=== PATIENT | female | born 1985 | race African-American/Black ===

== ENCOUNTER 2020-12-10 08:38 | Outpatient (CLI) | payer OTHER ==
[2020-12-11 01:29] LABS: SARS-CoV-2 PCR by NAA Not Detected (NotDetected)
== END 2020-12-10 08:39 | disposition home or self-care (01) ==
LOC: CSHLAB 08:38
PROVIDERS: ATTEND Family Medicine
DX: Z20.822 Contact with and (suspected) exposure to COVID-19 (principal)
CPT/HCPCS: U0003; U0005

== ENCOUNTER 2020-12-13 11:10 | Inpatient (IN) | payer OTHER ==
[2020-12-15] MEDS ORDERED: Misoprostol 200 MCG TAB PR PRN (23:35)
[2020-12-15] MEDS ORDERED: Lidocaine 1% (PF) 30 ML VIAL SC PRN (23:35)
[2020-12-15] MEDS ORDERED: Ondansetron PF 4 MG/2 ML Vial IVP PRN (23:35)
[2020-12-15] MEDS ORDERED: NS w/ Oxytocin 30 units 500 ML IV SCH ×2 (23:35→23:45)
[2020-12-15] MEDS ORDERED: HYDROcodone/Acetaminophen 5/325 mg Tablet PO PRN (23:35)
[2020-12-15] MEDS ORDERED: Diphenoxylate HCl/Atropine Tablet PO PRN (23:35)
[2020-12-15] MEDS ORDERED: Carboprost 250 MCG/ML AMP IM PRN (23:35)
[2020-12-15] MEDS ORDERED: Acetaminophen 500 MG TAB PO PRN (23:35)
[2020-12-15] MEDS ORDERED: Ibuprofen 800 MG TAB PO PRN (23:35)
[2020-12-15] MEDS ORDERED: Penicillin G Potassium 5 MILL.UNITS in Sodium Chloride 0.9% 100 ML IVPB SCH (23:35)
[2020-12-15] MEDS ORDERED: Butorphanol Tartrate 1 MG/ML VIAL SLOW IVP PRN (23:35)
[2020-12-15] MEDS ORDERED: Promethazine HCl 25 MG/ML VIAL IM PRN (23:35)
[2020-12-15 23:43] VITALS: BMI 45.6
[2020-12-15] MEDS ORDERED: NS w/ Oxytocin 30 units 500 ML IVPB SCH (23:45)
[2020-12-15] MEDS: hydrALAZINE 20 MG/ML VIAL SLOW IVP PRN (23:50)
[2020-12-16] MEDS: hydrALAZINE 20 MG/ML VIAL SLOW IVP PRN (00:06)
[2020-12-16] MEDS ORDERED: Penicillin G 2.5 MILL.units 2.5 MILL.UNITS in Premix Bag 1 BAG IVPB SCH (00:15)
[2020-12-16] MEDS ORDERED: Magnesium Sulfate 20 gm/500 ml 20 GM/500 ML BAG ONE (00:26)
[2020-12-16] MEDS ORDERED: ceFAZolin 2 GM/Dextrose 50 ML IVPB ONE (00:26)
[2020-12-16] MEDS ORDERED: hydrALAZINE 20 MG/ML VIAL ONE (00:27)
[2020-12-16] MEDS ORDERED: Labetalol HCl 100 MG/20 ML VIAL ONE (00:47)
[2020-12-16 01:11] LABS: Hemoglobin 11.6 g/dL (12.0-15.5); Mean Corpuscular HGB CONC 32.9 g/dL (32.0-36.0); Mean Corpuscular Hemoglobin 27.2 pg (27.0-33.0); Mean Corpuscular Volume 82.7 fl (81.6-98.3); Mean Platelet Volume 9.9 fl (7.4-10.4); Platelet Count 266 10x3/uL (150-450); RBC Distribution Width 14.6 % (11.5-14.5); Red Blood Cell (RBC) Count 4.27 10x6/uL (3.90-5.03); White Blood Cell (WBC) Count 8.9 10x3/uL (3.5-10.5)
[2020-12-16] MEDS ORDERED: Labetalol HCl 100 MG/20 ML VIAL SLOW IVP SCH ×2 (01:30)
[2020-12-16] MEDS ORDERED: Magnesium Sulfate 20 gm/500 ml 4 GM/100 ML BAG IVPB SCH (01:30)
[2020-12-16] MEDS ORDERED: Labetalol HCl 100 MG TAB PO SCH (01:30)
[2020-12-16] MEDS ORDERED: Magnesium Sulfate 20 gm/500 ml 20 GM/500 ML BAG IVPB SCH (01:30)
[2020-12-16] MEDS: Misoprostol 100 MCG TAB PO SCH ×2 (01:31→21:03)
[2020-12-16 01:36] LABS: Hep B Surf Ag Non-Reactive S/CO (NonReactive); Syphilis Antibody Nonreactive (Nonreactive); Syphilis Antibody Index 0.04 S/CO (<1.00 Non-Reactive)
[2020-12-16 01:48] LABS: HBSAg Index 0.12 S/CO (0-0.99)
[2020-12-16] MEDS: ceFAZolin 2 GM/Dextrose 50 ML 2 GM in Premix Bag 1 BAG IVPB SCH (06:19)
[2020-12-16] MEDS ORDERED: Fentanyl 2 mcg/Bup 0.1% Cadd 100 ML ONE (08:02)
[2020-12-16] MEDS ORDERED: ePHEDrine Sulfate 50 MG/10 ML VIAL ONE (08:08)
[2020-12-16] MEDS ORDERED: Bupivacaine 0.25% HCL 30 ML VIAL ONE (08:08)
[2020-12-16] MEDS ORDERED: Acetaminophen 325 MG TAB PO PRN (08:30)
[2020-12-16] MEDS ORDERED: Hydrocerin (Eucerin) Cream 120 gm Jar TOP PRN (08:30)
[2020-12-16] MEDS ORDERED: Lactated Ringer's 500 ML IV PRN (08:30)
[2020-12-16] MEDS ORDERED: Communication Order-Pharmacy FS SCH (08:30)
[2020-12-16] MEDS ORDERED: diphenhydrAMINE 50 MG/ML VIAL IVP PRN (08:30)
[2020-12-16] MEDS ORDERED: Fentanyl 2 mcg/Bupivacaine 0.1% Cassette 100 ML EPIDURAL SCH (08:30)
[2020-12-16] MEDS ORDERED: ePHEDrine Sulfate 50 MG/10 ML VIAL SLOW IVP PRN (08:30)
[2020-12-16] MEDS ORDERED: Ondansetron PF 4 MG/2 ML Vial IVP PRN ×2 (08:30→15:12)
[2020-12-16] MEDS ORDERED: Promethazine HCl 25 MG/ML VIAL IM PRN ×2 (08:30→15:12)
[2020-12-16] MEDS ORDERED: Naloxone HCl 0.4 mg/ml Vial IVP PRN ×2 (08:30)
[2020-12-16] MEDS ORDERED: diphenhydrAMINE 25 MG CAP PO PRN (15:12)
[2020-12-16] MEDS ORDERED: Milk Of Magnesia 30 ML UDCUP PO PRN (15:12)
[2020-12-16] MEDS ORDERED: Calcium Gluconate 4.6 MEQ in Sodium Chloride 0.9% 100 ML IVPB PRN (15:12)
[2020-12-16] MEDS ORDERED: Lanolin Ointment 7 GM TUBE TOP PRN (15:12)
[2020-12-16] MEDS ORDERED: hydrALAZINE 20 MG/ML VIAL SLOW IVP PRN (15:12)
[2020-12-16] MEDS ORDERED: Bisacodyl 10 MG SUPP PR PRN (15:12)
[2020-12-16] MEDS ORDERED: Benzocaine-Menthol 82.5 ML CAN TOP PRN (15:12)
[2020-12-16] MEDS ORDERED: NS w/ Oxytocin 30 units 500 ML IV SCH (15:12)
[2020-12-16] MEDS ORDERED: Boostrix 0.5 ML (Tdap) VIAL IM ONE (15:12)
[2020-12-16] MEDS ORDERED: HYDROcodone/Acetaminophen 5/325 mg Tablet PO PRN ×2 (15:12)
[2020-12-16 15:44] LABS: Magnesium 4.1 mg/dL (1.6-2.6)
[2020-12-16] MEDS: Lactated Ringer's 1,000 ML IV SCH ×2 (21:01→21:02)
[2020-12-16] MEDS: Ibuprofen 800 MG TAB PO SCH (21:03)
[2020-12-16] MEDS: Ferrous Sulfate 325 MG TAB PO SCH (21:04)
[2020-12-16] MEDS: Docusate Calcium (SURFAK) 240 MG CAP PO SCH (21:14)
[2020-12-17] MEDS: Ibuprofen 800 MG TAB PO SCH ×3 (01:58→21:33)
[2020-12-17] MEDS ORDERED: Prenatal Vitamin 1 TAB PO SCH (09:00)
[2020-12-17] MEDS: Ferrous Sulfate 325 MG TAB PO SCH ×2 (14:02→15:17)
[2020-12-17] MEDS: Lactated Ringer's 1,000 ML IV SCH (14:02)
[2020-12-17] MEDS: Docusate Calcium (SURFAK) 240 MG CAP PO SCH ×2 (14:03→21:33)
[2020-12-17] MEDS: ceFAZolin 2 GM/Dextrose 50 ML 2 GM in Premix Bag 1 BAG IVPB SCH ×2 (15:14→15:15)
[2020-12-18] MEDS: Ibuprofen 800 MG TAB PO SCH ×2 (05:13→14:40)
[2020-12-18] MEDS: Ferrous Sulfate 325 MG TAB PO SCH (07:43)
[2020-12-18] MEDS: Docusate Calcium (SURFAK) 240 MG CAP PO SCH (08:18)
[2020-12-18 11:49] VITALS: BP 144/86; TEMP 99
== END 2020-12-18 16:20 | disposition home or self-care (01) | DRG 807 ==
LOC: CSHLD 12-15 23:07 → CSHPP 12-17 14:54
PROVIDERS: ADMIT Family Medicine; ATTEND Family Medicine
PROC: 10E0XZZ Delivery of Products of Conception, External Approach (ICD-10-PCS; principal; 2020-12-15)
PROC: 10907ZC Drainage of Amniotic Fluid, Therapeutic from Products of Conception, Via Natural or Artificial Opening (ICD-10-PCS; 2020-12-15)
PROC: 3E0P7VZ Introduction of Hormone into Female Reproductive, Via Natural or Artificial Opening (ICD-10-PCS; 2020-12-15)
PROC: 3E033VJ Introduction of Other Hormone into Peripheral Vein, Percutaneous Approach (ICD-10-PCS; 2020-12-15)
PROC: 0HQ9XZZ Repair Perineum Skin, External Approach (ICD-10-PCS; 2020-12-15)
DX: O11.4 Pre-existing hypertension with pre-eclampsia, complicating childbirth (principal); Z37.0 Single live birth; E03.9 Hypothyroidism, unspecified; E66.9 Obesity, unspecified; O99.284 Endocrine, nutritional and metabolic diseases complicating childbirth; Z20.822 Contact with and (suspected) exposure to COVID-19; Z79.890 Hormone replacement therapy; Z79.899 Other long term (current) drug therapy; O70.0 First degree perineal laceration during delivery; Z3A.37 37 weeks gestation of pregnancy
CPT/HCPCS: 36415; 51702; 81003; 82570; 83735; 84155; 85027; 86780; 86850; 86900; 86901; 87340; 87807; 99285; J0360; J0690; J2590; J3475

== ENCOUNTER 2022-05-24 11:48 | Emergency (ER) | payer OTHER ==
[2022-05-24 12:31] LABS: #Eosinphils 0.1 10x3/uL (0.0-0.5); #Monocytes 0.5 10x3/uL (0.0-1.1); #Neutrophils 2.2 10x3/uL (1.5-8.4); %Eosinophils 3.1 % (0.0-6.0); %Lymphocytes 27.2 % (18.0-47.0); %Neutrophils 56.4 % (40.0-75.0); Hemoglobin 14.6 g/dL (12.0-15.5); Mean Corpuscular HGB CONC 34.1 g/dL (32.0-36.0); Mean Corpuscular Hemoglobin 29.9 pg (27.0-33.0); Mean Corpuscular Volume 87.5 fl (81.6-98.3); Mean Platelet Volume 8.8 fl (7.4-10.4); Platelet Count 314 10x3/uL (150-450); Red Blood Cell (RBC) Count 4.89 10x6/uL (3.90-5.03); White Blood Cell (WBC) Count 3.8 10x3/uL (3.5-10.5)
[2022-05-24 12:44] LABS: ALT (SGPT) 12 U/L (8-55); AST (SGOT) 17 U/L (5-34); Albumin 4.6 g/dL (3.5-5.0); Alkaline Phosphatase 90 U/L (40-110); Anion Gap 15 mmol/L (10-20); BUN (Urea Nitrogen) 6 mg/dL (7.0-18.7); Bilirubin, Total 1.1 mg/dL (0.2-1.2); Calc. Creatinine Clearance 0 mL/min (70-130); Calcium 9.6 mg/dL (7.8-10.44); Carbon Dioxide 24 mmol/L (22-29); Chloride 102 mmol/L (98-107); Estimated GFR 102; Globulin 3.7 g/dL (2.4-3.5); Glucose 114 mg/dL (70-105); Potassium 3.1 mmol/L (3.5-5.1); Protein, Total 8.3 g/dL (6.0-8.3); Sodium 138 mmol/L (136-145)
[2022-05-24 12:53] LABS: Magnesium 2.1 mg/dL (1.6-2.6)
[2022-05-24] MEDS ORDERED: Potassium Chloride 20 MEQ TAB ONE (14:00)
== END 2022-05-24 14:40 | disposition home or self-care (01) ==
LOC: CSHERS 11:48
DX: U07.1 COVID-19 (principal); E87.6 Hypokalemia; I10 Essential (primary) hypertension; E05.90 Thyrotoxicosis, unspecified without thyrotoxic crisis or storm
CPT/HCPCS: 71045; 80053; 83735; 84443; 84484; 85025; 93005